=== PATIENT | male | born 1990 | race Caucasian/White ===

== ENCOUNTER 2020-12-18 08:33 | Outpatient (REF) | payer OTHER, SELFPAY ==
[2020-12-18 11:59] LABS: Alanine Aminotransferase 36 U/L (0-40); Albumin Level 4.1 g/dL (3.5-5.0); Alkaline Phosphatase 74 U/L (39-117); Anion Gap 11 (12-20); Aspartate Amino Transferase 32 U/L (5-37); Bilirubin Total 1.7 mg/dL (0.0-1.0); Blood Urea Nitrogen 12 mg/dL (9-16); Calcium 8.6 mg/dL (8.4-10.2); Carbon Dioxide 28 mmol/L (22-29); Chloride 104 mmol/L (96-108); Cholesterol 222 mg/dL; Estimated Glomerular Filt Rate > 60; Glucose Fasting 96 mg/dL (60-99); HDL Cholesterol 39 mg/dL; LDL Cholesterol Calculated 162 mg/dl; Potassium 4.1 mmol/L (3.3-5.1); Sodium 139 mmol/L (135-145); Total Protein 7.2 g/dL (6.5-8.0); Triglycerides 109 mg/dL
[2020-12-18 12:22] LABS: TSH reflex Free T4 0.96 uIU/mL (0.32-4.0)
== END 2020-12-18 08:34 | disposition home or self-care (01) ==
LOC: HO.HMGCLDS 08:33
PROVIDERS: PCP Nurse Practitioner Family; Visit Provider Nurse Practitioner Family
DX: Z00.00 Encounter for general adult medical examination without abnormal findings (principal)
CPT/HCPCS: 36415; 80053; 80061; 84443

== ENCOUNTER 2022-09-23 06:23 | Emergency (ER) | payer OTHER, SELFPAY ==
--- NOTE | ~2022-09-23 | XR_ITS ---
EXAMINATION: XR FINGER, RIGHT CLINICAL INFORMATION: Right middle finger injury. COMPARISON: None TECHNIQUE: PA, lateral, and oblique views of the right long finger. FINDINGS: Soft tissues are swollen at the long finger with possible laceration. No fracture or malalignment. Bone mineralization is normal. Joint spaces are normal. No radiodense foreign bodies. XR/XR finger RT min 2V IMPRESSION: Soft tissue injury at the right long finger. No acute osseous findings.
[2022-09-23 06:25] VITALS: BP 166/97; PULSE 92; RESP 18; TEMP 36.3; O2SAT 100; BMI 51.5
--- NOTE | 2022-09-23 08:39 | ED_ITS ---
HPI - Wound/Laceration General Chief Complaint: Wound/Laceration Stated Complaint: finger laceration Time Seen by Provider: 09/23/22 06:58 Source: patient Mode of arrival: ambulatory Limitations: no limitations History of Present Illness HPI narrative: 32-year-old male accidentally cut his right middle finger using a box lidder at work today at 05:30 hours. The patient does not know when his last tetanus shot was given. Denies any other injuries. Related Data Previous Rx's Medication Instructions Recorded clobetasol 0.05 % topical cream 1 appl topical DAILY PRN eczema 30 12/17/20 days #45 grams Allergies Allergy/AdvReac Type Severity Reaction Status Date / Time sulfa Allergy Unknown not sure Verified 09/23/22 06:29 he was young Review of Systems Review of Systems: Yes all other systems are reviewed and are negative [facility] Past Medical History [facility] Narrative: Past medical history: High cholesterol. Social history: The patient works at [employer]. He denies tobacco use. He states he occasionally drinks alcohol. He denies drug use. Surgical History S/P hernia surgery Family History Family History Father No problems noted. Mother No problems noted. Social History Social History Alcohol intake: current Alcohol intake frequency: holidays/special occasions only Advance Directives: No Physical Exam Vital Signs: Vital Signs: Last Vital Signs Temp 97.3 F 09/23/22 06:25 Pulse 92 09/23/22 06:25 Resp 18 09/23/22 06:25 BP 166/97 H 09/23/22 06:25 Pulse Ox 100 09/23/22 06:25 O2 Del Method 09/23/22 06:25 BMI result Body Mass Index 51.5 Const: Other: Awake, alert, male patient, very pleasant cooperative, in no distress. Extrem: Other: To see the patient has a linear, full skin thickness laceration to the finger pad of the right middle finger, the fingers neurovascular intact Course Course Course Narrative: 32-year-old male who presents emergency department for evaluation of laceration to his right middle finger that occurred at work. Patient's finger was neurovascularly intact. Patient had a x-ray the finger with no foreign body seen in no acute fractures. Patient's laceration repair with 3.0 nylon sutures x5. Patient tolerated the procedure well. 1803: The patient's tetanus status needed to be updated however I did not order this medication prior to him being discharge. I did into the order now the patient was contacted asked to come back to the emergency department so that we could updated vaccination. Medications Administered Discontinued Medications Generic Name Dose Route Start Last Admin Trade Name Natalya PRN Reason Stop Dose Admin Lidocaine HCl 20 ml 09/23/22 07:20 09/23/22 09:05 Lidocaine Hcl 2 % 20 Ml Vial INFILTRATI 09/23/22 07:21 20 ml ONCE ONE Administration Procedures Laceration The right middle finger: Site: other (Middle finger) Side (If applicable): right Size (cm): 1.0 Description: linear (Full skin thickness) Depth: simple, single layer Local Anesthetic: lidocaine 1% (Digital block) Amount of anesthesia used (mL): 8 Pre-repair: wound explored Skin layer closed with: nylon Size (cm): 4-0 Number of sutures: 5 Technique: simple, interrupted Discharge Plan Discharge Clinical Impression: Laceration of right middle finger without damage to nail Patient Disposition: Home, Self-Care Instructions: Finger Laceration (ED) Additional Instructions: You received 5 stitches to your finger. These stitches need to be removed by your doctor, occupational health clinic or the emergency depart in 7-10 days. Use bacitracin twice a day until the stitches removed and cover the wound with a gauze dressing for at least 24 hours to help stop bleeding Take ibuprofen 200 mg pills, 3 pills every 6 hours as needed for pain. Take Tylenol (acetaminophen) 500 mg pills, 2 pills every 4 to 6 hours as needed for pain. Follow-up with your doctor in 2 days. Please return to the emergency department if your symptoms get worse or if you develop any symptoms that are concerning to you. Prescriptions: No Action clobetasol 0.05 % cream 1 appl topical DAILY PRN (Reason: eczema) 30 Days Qty: 45 0RF Stand Alone Forms: Work/School Release Interventions: ED Discharge Assessment Last Done: 09/23/22 09:05 Discharge Date/Time: 09/23/22 09:06
[2022-09-23] MEDS: Lidocaine HCl 2 % 20 ML VIAL INFILTRATI (09:05)
[2022-09-24] MEDS: Diphth,Pertus(ACell),Tet Adult 0.5 ML SYRINGE IM (01:01)
== END 2022-09-23 09:06 | disposition home or self-care (01) ==
PROVIDERS: Emergency Provider Emergency Medicine Emergency Medical Services
DX: S61.212A Laceration without foreign body of right middle finger without damage to nail, initial encounter (principal); W26.0XXA Contact with knife, initial encounter; Y93.9 Activity, unspecified; Y92.9 Unspecified place or not applicable; Y99.0 Civilian activity done for income or pay
CPT/HCPCS: 12001; 73140; 90471; 90715; 99282; 99284

== ENCOUNTER 2023-08-16 08:36 | Outpatient (AMB) | payer SELFPAY ==
--- NOTE | 2023-08-16 10:17 | AM.OFFWIN_ITS ---
Intake Vital Signs 08/16/23 10:18 Height 6 ft Weight 388 lb BMI 52.6 BP 136/80 Blood Pressure Location Lt brachial Position Sitting Pulse 78 Pulse Source Pulse Oximeter Temp 99.4 F Temp Source Temporal Artery Scan Pulse Oximetry (%) 96 Intake Visit Reasons: EST/possible strep/[phone] Intake Note: pt is here for c/o possible strep Patient Tobacco Use Status: Former Tobacco user Allergies sulfa Allergy (Unknown, Verified 08/16/23 10:18) not sure he was young Do you need a note to return to daycare/school/sports/work: Yes HPI HPI Comments History of Present Illness Details 33 her mother presents for present strep throat. Patient's parents sore throat tenderness along his neck x1 day. Denies fevers but feels chills. No shortness of breath PFSH Surgical History S/P hernia surgery Family History Father No problems noted. Mother No problems noted. Social History Alcohol intake: current Alcohol intake frequency: holidays/special occasions only Patient Tobacco Use Status: Former Tobacco user Review of Systems ENT Reports sore throat Physical Exam Vital Signs: Last Vital Signs Temp 99.4 F 08/16/23 10:18 Pulse 78 08/16/23 10:18 BP 136/80 08/16/23 10:18 Pulse Ox 96 08/16/23 10:18 BMI result Body Mass Index 52.6 Const General: healthy appearing, comfortable, no acute distress and alert Orientation/consciousness: patient oriented x3 Limitations: no limitations HEENT Other: erythema in the posterior pharynx white exudates appreciated on the left tonsils. Uvula midline tonsils 1+ bilaterally. Left-sided cervical lymphadenopathy Head: Yes normal to inspection Ears: hearing grossly normal bilaterally Resp Effort & Inspection: normal respiratory effort and able to speak in complete sentences Cardio Rate: regular rate Skin General skin exam: no rashes or lesions noted Neuro General: patient oriented x3 Extrem General: Yes normal to inspection Results AMB Rapid Strep AMB Rapid Strep Negative Last Edit by Tomer Ardon CMA on 08/16/23 10 :33 Assessment & Plan Assessment & Plan (1) Pharyngitis: Code(s): J02.9 - Acute pharyngitis, unspecified Plan VSS exam notable for erythema in the posterior pharynx white exudates appreciated on the left tonsils. Uvula midline tonsils 1+ bilaterally. Left- sided cervical lymphadenopathy rapid strep negative however given examination will treat empirically. Discharge instructions, follow up and treatment are discussed with patient in my usual fashion. Alternatives in treatment are also discussed. The patient will return for worsening symptoms or as needed. Advised that any labs/imaging ordered will be followed up on and contact made if further treatment needed. Counseled that patient's condition may require further evaluation and/or treatment. Symptoms of concern for worsening disorder discussed in detail in my customary manner. Patient does verbalize understanding of the plan, there are no apparent barriers to communication. The patient is given the opportunity to ask questions and have them answered to his/her satisfaction Orders: Orders AMB Rapid Strep Screen Today Z13.9 - Encounter for screening, unspecified Medications: New penicillin V potassium 500 mg PO BID 20 tabs 0RF 10 days Patient Instructions: Your rapid strep test is negative, however given examination we prescribed penicillin In the meantime soothing relief is often obtained from the following: a cup of tea with honey a cup of tea with lemon hot chocolate Chicken bullion or soup warm salt water gargles or baking soda. Mix 1 teaspoon of salt with 1 cup of water gargle for 5 to 10 seconds and then spit and repeat as needed. You can also do this with 1 teaspoon of baking soda. There are many [id number] medications to help soothe a sore throat I would suggest: CEPACOL LOZENGES CHLORASEPTIC THROAT SPRAY. There are many others.. Coding Level of Care Code Est Pt Level 3 (71948) Diagnoses Pharyngitis J02.9
[2023-08-16 10:18] VITALS: BP 136/80; PULSE 78; TEMP 37.4; O2SAT 96; BMI 52.6
== END 2023-08-16 10:37 | disposition home or self-care (01) ==
PROVIDERS: Visit Provider Physician Assistant
DX: J02.9 Acute pharyngitis, unspecified (principal)
CPT/HCPCS: 87880; 99213